=== PATIENT | male | born 1995 | race Caucasian/White ===

== ENCOUNTER 2021-06-10 20:48 | Emergency (ER) | payer SELFPAY ==
[2021-06-10] MEDS ORDERED: Oxymetazoline 0.05% Nasal Spray 30 ML Bottle NAS ONE (21:52)
--- NOTE | 2021-06-10 21:57 | EDM.PDOC ---
ED HPI GENERAL MEDICAL PROBLEM - General Chief Complaint: ENT Problem Stated Complaint: ALERGIES CANT BREATH. Time Seen by Provider: 06/10/21 21:45 Source of Information: Reports: Patient History Limitations: Reports: No Limitations - History of Present Illness INITIAL COMMENTS - FREE TEXT/NARRATIVE: Patient comes emergency department today with complaints of sinus pressure emily inage. For the past 3 to 4 days the patient is complaining of quite a bit sinus drainage pressure and congestion. He has a headache. Itchy watery eyes. Sneezing coughing congestion. He has been trying Mucinex without improvement. No fever no chills. He has had no recent chronic sinusitis. He has not tried anything else other than [id number] Mucinex. No fever no chills. He does have itchy scratchy throat. No difficulty with breathing or swallowing. He does relate that he has a history of asthma and intermittently has noticed that he has been wheezing - Related Data Allergies Allergy/AdvReac Type Severity Reaction Status Date / Time No Known Allergies Allergy Verified 06/10/21 20:59 Home Meds: Home Meds . [No Known Home Meds] 06/10/21 [History] Past Medical History - Past Health History Medical/Surgical History: Denies Medical/Surgical History Social & Family History - Tobacco Use Tobacco Use Status *Q: Never Tobacco User Second Hand Smoke Exposure: No - Caffeine Use Caffeine Use: Reports: Coffee - Recreational Drug Use Recreational Drug Use: No ED ROS ENT - Review of Systems Review Of Systems: Comprehensive ROS is negative, except as noted in HPI. ED EXAM, ENT - Physical Exam Exam: See Below Exam Limited By: No Limitations General Appearance: Alert, WD/WN, No Apparent Distress Eye Exam: Bilateral Eye: Other (He does have some mild injection of the conjunctive as well as periorbital nonerythematous swelling and some clear drainage bilaterally.) Ears: Normal External Exam, Normal Canal, Normal TMs Nose: Clear Rhinorrhea, Nasal Swelling (He has quite a bit of swelling of the nasal turbinates that are mildly erythematous injected and quite boggy and swollen minimal airway passages), Injected Turbinates Mouth/Throat: Normal Inspection (Normal inspection of the anterior oropharynx. Posterior pharynx tonsils are unremarkable. There is cobblestoning and pink salmon-colored vesicles concerning for postnasal drip.), Normal Gums, Normal Lips, Normal Oropharynx, Normal Teeth. No: Tonsillar Erythema, Tonsillar Exudates, Tonsillar Swelling, Uvular Deviation, Uvular Edema Head: Atraumatic, Normocephalic Neck: Normal Inspection, Supple, Non-Tender, Full Range of Motion. No: Lymphadenopathy (L), Lymphadenopathy (R) Respiratory/Chest: No Respiratory Distress, Lungs Clear, Normal Breath Sounds, No Accessory Muscle Use, Chest Non-Tender Cardiovascular: Normal Peripheral Pulses, Regular Rate, Rhythm GI/Abdominal: Normal Bowel Sounds, Soft, Non-Tender Extremities: Normal Inspection, No Pedal Edema, Normal Capillary Refill Neurological: Alert, Oriented, CN II-XII Intact, Normal Cognition, No Motor/Sensory Deficits Psychiatric: Normal Affect, Normal Mood Skin: Warm, Dry, Intact, Normal Color, No Rash Course - Vital Signs Last Recorded V/S: Last Vital Signs Temp 98.4 F 06/10/21 20:57 Pulse 68 06/10/21 20:57 Resp 16 06/10/21 20:57 BP 121/99 H 06/10/21 20:57 Pulse Ox 97 06/10/21 20:57 - Orders/Labs/Meds Meds: Medications Discontinued Medications Generic Name Dose Route Start Last Admin Trade Name Freq PRN Reason Stop Dose Admin Oxymetazoline HCl 1 ml 06/10/21 21:52 06/10/21 22:04 Oxymetazoline 0.05% Nasal [place] 30 Ml Bottle PRIMITIVO 06/10/21 21:53 2 spray ONETIME ONE Administration - Re-Assessments/Exams Free Text/Narrative Re-Assessment/Exam: This patient clearly has the presentation of acute allergic sinusitis. We will treat him with [id number] remedies primarily second-generation antihistamines as well as nasal saline rinses and fluticasone. We will give him a prescription for his albuterol inhaler refill for his as needed needed for wheezing. Discharge instructions as below are explained to the patient is comfortable with this plan his questions were answered. Departure - Departure Time of Disposition: 21:55 Disposition: Home, Self-Care 01 Clinical Impression: Allergic rhinitis Qualifiers: Allergic rhinitis trigger: other Allergic rhinitis seasonality: unspecified Qualified Code(s): J30.89 - Other allergic rhinitis - Discharge Information Instructions: Allergic Rhinitis, Adult, [id number], How to Perform a Sinus Rinse, [id number] Forms: ED Department Discharge Additional Instructions: OTC Zyrtec Alyssia or Xyzal daily to help with the systemic complaints. OTC Netti Pot nasal saline rinse twice daily to help remove the allergens. 10 minutes later Oxymetazoline 2 sprays each nostril twice daily for ONLY 2 days. Bottle from the ED. 10 minutes later. Fluticasone 1 spray each nostril twice daily for 7 days and then 1 spray each nostril till symptoms resolve. Albuterol MDI inhaler as needed for cough. Return to the ED if new or worsening symptoms. Follow up with PCP in the next week if not improving sooner if worse. Sepsis Event Note (ED) - Evaluation Sepsis Screening Result: No Definite Risk - Focused Exam Vital Signs: Vital Signs Temp Pulse Resp BP Pulse Ox 06/10/21 20:57 98.4 F 68 16 121/99 H 97
== END 2021-06-10 22:06 | disposition home or self-care (01) ==
LOC: DL.ED 20:48
DX: J30.89 Other allergic rhinitis (principal)
CPT/HCPCS: 99283; A9270-GY

== ENCOUNTER 2021-07-08 06:30 | Day surgery (SDC) | payer SELFPAY ==
[~2021-07-08 06:30] MED LIST: Midazolam 1 MG/ML 2 ML SDV ONE; fentaNYL 100 MCG/2 ML SDV ONE
[2021-07-08] MEDS ORDERED: Midazolam 1 MG/ML 2 ML SDV IV ONE ×7 (06:31→07:55)
[2021-07-08] MEDS ORDERED: fentaNYL 100 MCG/2 ML SDV IV ONE ×4 (06:31→07:56)
[2021-07-08] MEDS ORDERED: Dextrose 5%-0.45% NaCl 1,000 ML IV SCH (06:45)
--- NOTE | 2021-07-08 14:11 | OR ---
DATE: 07/08/2021 PROCEDURE: Total colonoscopy. INSTRUMENT USED: PCF-H190DL Olympus video colonoscope. PREMEDICATIONS: Fentanyl 150 mcg intravenous, Versed 4 mg intravenous. Nasal O2 cannula. The procedure was done under pulse oximetry, BP recording, and quality assurance monitor final. INDICATIONS: The patient with unexplained rectal bleeding. Colonoscopic examination is done for detection of any polypoid lesions and removal, endoscopic hemostasis therapy if needed. DESCRIPTION OF PROCEDURE: Initial rectal exam was unremarkable. Rigid anoscopy showed small internal hemorrhoids without bleeding from them. The colonoscope was passed with ease. Photograph was taken of the normal-appearing rectum. The scope was passed with ease up to the ileocecal area. Photographs were taken of the normal-appearing cecum identified by double-bulged ileocecal folds. No bleeding was noted from any of the visualized areas at the commencement of the examination. The bowel preparation was quite inadequate due to the presence of large amount of solid and liquid fecal material that could not be aspirated clear. Bowel prep by [place] scale 1 in right and left colon, 2 in transverse colon, total score 4. No stricture, no vascular ectasia, no large isolated ulcerations seen. No evidence of diffuse inflammatory bowel disease in the form of friability, contact bleeding, or ulcerations. No polyp or tumor mass identified. Probing the proximal sides of folds and flexures using adequate distention and clearing up the stool material, withdrawal of the scope was made. Cecum to rectum time over 6 minutes. No bleeding was noted from any of the visualized areas at the completion of examination. IMPRESSION: Internal hemorrhoids. The patient tolerated the procedure well. [facility] /[id number]
== END 2021-07-08 10:13 | disposition home or self-care (01) ==
LOC: DL.ENDO 06:30
PROVIDERS: ATTEND Internal Medicine Gastroenterology
DX: K62.5 Hemorrhage of anus and rectum (principal); K64.8 Other hemorrhoids; Z98.890 Other specified postprocedural states; Z87.891 Personal history of nicotine dependence; Z01.812 Encounter for preprocedural laboratory examination; Z20.822 Contact with and (suspected) exposure to COVID-19
CPT/HCPCS: J2250; J3010; J7042; U0002